=== PATIENT | male | born 1950 | race Caucasian/White ===

== ENCOUNTER → 2021-08-05 17:17 | Outpatient (BNVA) | payer SELFPAY | PROVIDERS: Family Provider Nurse Practitioner Family; PCP Nurse Practitioner Family; Visit Provider Nurse Practitioner Family | DX: R30.0 Dysuria (principal) | CPT/HCPCS: 81003; 87077; 87086; 87184 ==

== ENCOUNTER 2023-06-12 08:34 | Emergency (ER) | payer OTHER, SELFPAY ==
[2023-06-12] VITALS (9 sets, daily range): BP systolic 138–219; BP diastolic 69–123; PULSE 56–71; RESP 18; TEMP 37.2; O2SAT 93–96; BMI 32.5
[2023-06-12 09:10] LABS: Basophils # 0.1 10^3/uL (0.0-0.1); Basophils % 0.7 %; Eosinophils # 0.2 10^3/uL (0.0-0.8); Eosinophils % 2.8 %; Hematocrit 43.3 % (37-53); Lymphocytes # 2.7 10^3/uL (0.8-4.8); Lymphocytes % 37.4 %; Mean Corpuscular Hemoglobin 30.2 pg (27-33); Mean Corpuscular Volume 91.5 fl (82-101); Monocytes # 0.7 10^3/uL (0.2-0.9); Monocytes % 9.5 %; Neutrophils # 3.52 10^3/uL (1.8-7.7); Neutrophils % 49.3 %; Nucleated Red Blood Cells % 0 %; Platelet Count 296 10^3/cmm (157-399); Red Blood Count 4.73 10^6/uL (3.85-5.65); Red Cell Distribution Width 12.8 % (12.1-15.1); White Blood Count 7.14 10^3/uL (3.29-11.43)
--- NOTE | 2023-06-12 09:11 | PC.PHAR ---
PT STATES HE NO LONGER TAKES ANY MEDICATION. 06/12/23
--- NOTE | 2023-06-12 09:19 | ED_ITS ---
HPI - Extremity Problem 2 General: Chief complaint: Extremity Injury, Lower Stated complaint: rt leg pain Time Seen by Provider: 06/12/23 08:42 Source: patient Mode of arrival: EMS History of Present Illness: 73-year-old male presents to the emergen cy room with pain in his right leg. Patient tells me that 2 months ago he woke up with pain in his right leg and could not walk its been this way for 2 months he has not seen anybody in the interim he previously had trauma to the right leg and required open reduction internal fixation and then at a later date had a knee arthroplasty this was many years ago no recent surgery. No history of DVTs. Notation t no associated or triggering trauma falls or other injury that he can recall. He presented to the emergency room because he stated he thought after 2 months since it had not gotten better he needed to be evaluated. MD Complaint: extremity pain Onset (ago): month(s) (2) Pain Consistency: constant Location: right and lower extremity Radiation: none Relieving factors: nothing Exacerbating factors: weight bearing and walking Associated symptoms: Deny chest pain, fever(s) or rash Review of Systems 2 Const: Denies: fever(s) or chills Card: Denies: chest pain Resp: Denies: dyspnea GI: Denies: abdominal pain : Denies: dysuria, urinary frequency or urinary urgency Musc: Denies: neck pain or back pain Skin/Breast: Denies: rash PFSH ED 2 PFSH: Medical History Aftercare following right shoulder joint replacement surgery 1986 Left wrist fracture Mandible fracture Surgical History Total knee replacement status Family History Other Cancer Social History Smoking and tobacco/nicotine status: current every day tobacco/nicotine user (smokes 1/2 pk day) Second hand smoke exposure: Yes Alcohol intake: never Substance/Drug Use: former Date of last use: 40 years ago Household members: spouse Marital status: Do you think of yourself as: Straight/Heterosexual Current gender identity: Male Physical Exam 2 Const: COMMON NORMALS: no acute distress GENERAL APPEARANCE: cooperative and comfortable ORIENTATION/CONSCIOUSNESS: Yes awake, Yes oriented to person, Yes oriented to place and Yes oriented to time HENMT: COMMON NORMALS: normocephalic, atraumatic and hearing grossly normal bilaterally HEAD & SCALP: normocephalic and atraumatic Resp: COMMON NORMALS: normal respiratory effort, No retractions, No use of accessory muscles and clear to auscultation bilaterally AUSCULTATION: clear to auscultation bilaterally Cardio: COMMON NORMALS: regular rate, regular rhythm and No murmurs present (Cardio) RATE: regular rate RHYTHM: regular rhythm GI: COMMON NORMALS: Soft to palpation and No hepatosplenomegaly present A USCULTATION: Yes normoactive bowel sounds PALPATION: Yes Soft to palpation, No Tenderness to palpation present (GI), No Guarding due to palpation present (GI) and Yes No hepatosplenomegaly present Extremity: COMMON NORMALS: normal to inspection, capillary refill normal, no clubbing, cyanosis or edema, no calf tenderness and no pedal edema Neuro: SENSORIUM/ORIENTATION: Yes oriented to person, Yes oriented to place and Yes oriented to time Skin: COMMON NORMALS: no rashes or lesions noted GENERAL SKIN EXAM: no rashes or lesions noted Course 2 Vital Signs: Vital signs: Vital Signs Temperature 98.9 F 06/12/23 08:36 Pulse Rate 71 06/12/23 12:44 Respiratory Rate 18 06/12/23 08:36 Blood Pressure 138/73 06/12/23 12:44 Pulse Oximetry 94 06/12/23 12:44 Oxygen Delivery Me thod Room Air 06/12/23 12:15 MDM - Extremity (Nontraumatic) Medical Decision Making Possible nondisplaced tibial type plateau fracture versus projectional artifact. See the x-ray report. Venous duplex negative. Will keep the patient nonweightbearing put in a knee immobilizer and continue crutches follow-up with orthopedics Medical Records I reviewed the patient's medical records. Lab Data I reviewed the patient's lab results. 06/12/23 09:04 06/12/23 09:04 Radiology Impressions Femur X-Ray 06/12/23 09:24 IMPRESSION: No acute findings. Healed fracture of the femoral shaft. Hip/Pelvis X-Ray 06/12/23 09:24 IMPRESSION: Chronic changes without acute findings. Knee X-Ray 06/12/23 09:24 IMPRESSION: Possible nondisplaced anteromedial tibial plateau fracture versus altered trabeculation/projectional artifact. Laboratory Results WBC 7.14 10^3/uL (3.29-11.43) 06/12/23 09:04 RBC 4.73 10^6/uL (3.85-5.65) 06/12/23 09:04 Hgb 14.30 g/dL (11.27-16.99) 06/12/23 09:04 Hct 43.3 % (37-53) 06/12/23 09:04 MCV 91.5 fl (82-101) 06/12/23 09:04 MCH 30.2 pg (27-33) 06/12/23 09:04 MCHC 33.0 g/dL (30-55) 06/12/23 09:04 RDW 12.8 % (12.1-15.1) 06/12/23 09:04 Plt Count 296 10^3/cmm (157-399) 06/12/23 09:04 MPV 9.0 fL (7.4-10.4) 06/12/23 09:04 Neut % (Auto) 49.3 % 06/12/23 09:04 Lymph % (Auto) 37.4 % 06/12/23 09:04 Porter % (Auto) 9.5 % 06/12/23 09:04 Eos % (Auto) 2.8 % 06/12/23 09:04 Baso % (Auto) 0.7 % 06/12/23 09:04 Neut # (Auto) 3.52 10^3/uL (1.8-7.7) 06/12/23 09:04 Lymph # (Auto) 2.7 10^3/uL (0.8-4.8) 06/12/23 09:04 Porter # (Auto) 0.7 10^3/uL (0.2-0.9) 06/12/23 09:04 Eos # (Auto) 0.2 10^3/uL (0.0-0.8) 06/12/23 09:04 Baso # (Auto) 0.1 10^3/uL (0.0-0.1) 06/12/23 09:04 Nucleated RBC % (auto) 0 % 06/12/23 09:04 Nucleated RBCs # 0.0 /100WBC 06/12/23 09:04 Sodium 135 mmol/L (136-145) L 06/12/23 09:04 Potassium 3.8 mmol/L (3.5-5.1) 06/12/23 09:04 Chloride 101 mmol/L (98-107) 06/12/23 09:04 Carbon Dioxide 24 mmol/L (22-29) 06/12/23 09:04 Anion Gap 13.8 (5-19) 06/12/23 09:04 BUN 9 mg/dL (8-23) 06/12/23 09:04 Creatinine 0.8 mg/dL (0.7-1.2) 06/12/23 09:04 GFR Calculation Not Reportable 06/12/23 09:04 Glucose 152 mg/dL (65-115) H 06/12/23 09:04 Calculated Osmolality 282 mOsm/kg (285-295) L 06/12/23 09:04 Calcium 9.3 mg/dL (8.5-10.5) 06/12/23 09:04 Total Bilirubin 0.2 mg/dL (0.15-1.2) 06/12/23 09:04 AST 16 U/L (0-40) 06/12/23 09:04 ALT 18 U/L (0-41) 06/12/23 09:04 Alkaline Phosphatase 105 U/L (40-130) 06/12/23 09:04 Total Protein 7.3 g/dL (6.6-8.7) 06/12/23 09:04 Albumin 4.0 g/dL (3.5-5.2) 06/12/23 09:04 Globulin 3.3 g/dL (1.3-4.6) 06/12/23 09:04 All radiology interpretation(s) finalized by discharge Discharge Plan Discharge Patient Disposition: Home Clinical Impression: Fracture of tibial plateau, Essential hypertension Condition: Stable Prescriptions: New hydrocodone-acetaminophen 5-325 mg tablet 1 tab PO Q6H PRN (Reason: pain) Qty: 10 0RF amlodipine 10 mg tablet 10 mg PO DAILY Qty: 30 0RF lisinopril 20 mg tablet 20 mg PO DAILY Qty: 30 0RF Discharge Orders: Discharge ED (Routine); Ordered 06/12/23 Ordered By: Panchito Browne Referrals: Kirsty Kennedy MD [Primary Care Provider] - Discharge Diet: Usual diet Discharge Activity: Limit activity as instructed Patient Instructions: Opioid Safety, Pain Management Activity Restrictions/Additional Instructions: Thank you for choosing [facility] for your healthcare needs today. Please realize this is an emergency room and that we are providing you with a medical screening exam and this may not be complete and all inclusive of all the testing and or work up that you may need to determine your ailment or severity of your illness. It is very important that you follow up as instructed or that you return to the Emergency Department should you have concerns or if your condition changes or worsens in any way. You were seen today complaining of right leg pain that been ongoing for 2 months x-ray shows you may have a tibial plateau fracture. Outpatient stool schedule an outpatient CT of your knee and follow-up with orthopedics. Your blood pressure was also markedly elevated you are given prescriptions for amlodipine 10 mg daily lisinopril 20 mg daily take both of these medications once daily and follow-up with your primary care doctor reevaluate blood pressure within the next week Coding Level of Care Code ED Loading Unit [employer] for [employer]
--- NOTE | 2023-06-12 09:24 | XRR_ITS ---
PROCEDURE INFORMATION: Exam: XR Right Hip Exam date and time: 06/12/2023 9:40 AM Age: 73 years old Clinical indication: Hip pain; Right hip TECHNIQUE: Imaging protocol: Radiologic exam of the right hip. Views: 1 view hip with pelvis when performed. COMPARISON: Concurrently performed right femur radiographs. FINDINGS: Bones/joints: No acute fracture or dislocation. Corticated ossification at the superior greater trochanter in keeping with chronic sequela of prior injury. Partially visualized chronic distal femur fracture deformity. Joint spacing and alignment are maintained. Soft tissues: Unremarkable. XR/XR hip RT 2-3V wo/w pel* [id number] IMPRESSION: Chronic changes without acute findings.
--- NOTE | 2023-06-12 09:24 | XRR_ITS ---
PROCEDURE INFORMATION: Exam: XR Right Femur Exam date and time: 06/12/2023 9:43 AM Age: 73 years old Clinical indication: Pain; Thigh; Right TECHNIQUE: Imaging protocol: Radiologic exam of the right femur. Views: 2 views. COMPARISON: CR XR hip RT 2-3V wo/w pel* [id number] 06/12/2023 9:40 AM FINDINGS: Bones/joints: Healed fracture of the distal junctional 4th of the femur. Knee replacement. Degenerative changes of the hip. No acute osseous or joint abnormality. Soft tissues: Unremarkable. XR/XR femur RT min 2V* [id number] IMPRESSION: No acute findings. Healed fracture of the femoral shaft.
--- NOTE | 2023-06-12 09:24 | XRR_ITS ---
PROCEDURE INFORMATION: Exam: XR Right Knee Exam date and time: 06/12/2023 9:46 AM Age: 73 years old Clinical indication: Pain; Knee; Right TECHNIQUE: Imaging protocol: Radiologic exam of the right knee. Views: 3 views. COMPARISON: CR XR femur RT min 2V* [id number] 06/12/2023 9:43 AM FINDINGS: Bones/joints: Knee arthroplasty shows intact hardware and adequate alignment. Thin linear lucency at the anteromedial tibial plateau. Chronic fracture deformity of the distal femoral shaft. Soft tissues: Unremarkable. XR/XR knee RT 3V* [id number] IMPRESSION: Possible nondisplaced anteromedial tibial plateau fracture versus altered trabeculation/projectional artifact.
[2023-06-12 09:28] LABS: Alanine Aminotransferase 18 U/L (0-41); Alkaline Phosphatase 105 U/L (40-130); Anion Gap 13.8 (5-19); Aspartate Amino Transferase 16 U/L (0-40); Blood Urea Nitrogen 9 mg/dL (8-23); Calcium 9.3 mg/dL (8.5-10.5); Carbon Dioxide 24 mmol/L (22-29); Chloride 101 mmol/L (98-107); Globulin 3.3 g/dL (1.3-4.6); Glucose 152 mg/dL (65-115); Osmolality Calculated 282 mOsm/kg (285-295); Potassium 3.8 mmol/L (3.5-5.1); Sodium 135 mmol/L (136-145); Total Bilirubin 0.2 mg/dL (0.15-1.2); Total Protein 7.3 g/dL (6.6-8.7)
--- NOTE | 2023-06-12 09:32 | USCV_ITS ---
Jw Bruno Age: 73 Gender: M : 1950 Exam Date: 06/12/2023 09:54 Ordering Phys: Panchito Browne DO Technologist: Harrison Castro [place] [facility] [place] Indication: rt leg pain and swelling PROCEDURES: Venous duplex imaging was performed in only the right lower extremity. The following venous structures were evaluated: common femoral vein, profunda vein, proximal portion of the greater saphenous vein, superficial femoral vein, and the popliteal vein. In addition, the posterior tibial and peroneal trunk were evaluated. FINDINGS: Normal 2-D Doppler and augmentation and compressibility throughout the lower extremity venous structures. Additional imaging through the proximal calf veins also reveals no thrombus. Limited evaluation of the greater saphenous vein is patent with no thrombus. CONCLUSIONS No DVT right lower extremity. Dr. Lakesha Bryant DO (Electronically Signed) Final Date: 12 June 2023 11:34 S
[2023-06-12] MEDS: amlodipine 10 mg Tablet PO (09:54)
[2023-06-12] MEDS: hyDRALAzine 20 mg/mL INJ 1 mL IVP (12:05)
--- NOTE | 2023-06-13 07:30 | DCPLANNER ---
Message sent to Ortho for follow up knee arthroplasty anterior tibial fx, Unable to bear weight-
--- NOTE | 2023-06-19 07:31 | DCPLANNER ---
I sent a message to ortho per patients chart a message was not sent to ortho. Message was sent for a follow up with ortho. Clinic to contact patient. 06/19/23
== END 2023-06-12 12:35 | disposition home or self-care (01) ==
PROVIDERS: Emergency Provider Family Medicine; PCP Family Medicine
DX: S82.144A Nondisplaced bicondylar fracture of right tibia, initial encounter for closed fracture (principal); I10 Essential (primary) hypertension; F17.210 Nicotine dependence, cigarettes, uncomplicated; Z96.651 Presence of right artificial knee joint; X58.XXXA Exposure to other specified factors, initial encounter
CPT/HCPCS: 29530; 36415; 73502; 73552; 73562; 80053; 85025; 93971; 96374; 99284; E0114; J0360